=== PATIENT | female | born 1985 | race Caucasian/White ===

== ENCOUNTER 2025-05-18 08:48 | Outpatient (AMB) | payer OTHER, SELFPAY ==
--- NOTE | 2025-05-18 08:59 | A.OFFPC_ITS ---
Vital Signs 05/18/25 09:04 Height 5 ft 6.54 in Weight 134 lb BMI 21.3 BP 104/72 Blood Pressure Location Rt brachial Position Sitting Respiration 12 Pulse 80 Pulse Source Pulse Oximeter Temp 98.8 F Temp Source Oral Pulse Oximetry (%) 99 Oxygen Delivery Method Room Air Intake Visit Reasons: [employer] Intake Note: New patient visit Educational Technician Required: No Allergies No Known Allergies Allergy (Verified 05/18/25 09:00) Medication List - Last Reconciled 05/18/25 by Daphne Montoya PA-C No Known Home Meds Tobacco use date assessed: 05/18/25 Dental Screening Dental Screen Date: 05/18/25 Did you have a dental visit in the last 12 months?: Yes Did you have a dental problem in the last 6 months where you did not have access to dental care?: No Was dental information given to patient?: Patient has dentist HPI [employer] HPI Details Patient is a 40-year-old [facility]. [facility] [place] [facility] [place] She denies any significant past medical history or any acute complaints. In review of systems she does note that for the past year she has had blood in the stool not on the toilet paper or on the outside. She states that it is definitely within the stool. No constipation, diarrhea or any significant change in abdominal pain or bloating. Does endorse intermittent bloating but does not think that this is abnormal. No nausea or vomiting or weight changes. No family history of colorectal cancer. Back [place] [facility] [place] Mammo: ordered,-states she has a schedule [facility] Surgical History (Updated 05/18/25 @ 09:08 by Geraldine Horan CMA) No pertinent past surgical history Family History (Updated 05/18/25 @ 09:09 by Geradline Horan CMA) Father Alcoholism Other Substance abuse Social History Housing: House e-Cigarette/Vaping Use: Never Used Second Hand Smoke Exposure: No service: No Current occupational status: employed Current occupation: [employer] Current occupational exposures/hazards: No Cognitive needs: No Hearing needs: No Vision needs: No Questionnaire PHQ-9 Over the last 2 weeks, how often have you been bothered by any of the following problems? 1. Little interest or pleasure in doing things: not at all 2. Feeling down, depressed, or hopeless: not at all 3. Trouble falling or staying asleep, or sleeping too much: not at all 4. Feeling tired or having little energy: not at all 5. Poor appetite or overeating: not at all 6. Feeling bad about yourself - or that you are a failure or have let yourself or your family down: not at all 7. Trouble concentrating on things, such as reading the newspaper or watching television: not at all 8. Moving or speaking so slowly that other people could have noticed. Or the opposite - being so fidgety or restless that you have been moving around a lot more than usual: not at all 9. Thoughts that you would be better off or of hurting yourself in some way: not at all Total score: 0 Depression Screening Interpretation: Negative Depression Screening Done: Yes 78295 - PHQ-9 Billing: Yes Source: Developed by Drs. Elian Jimenez, Brea Estes, Sb Sanders and colleagues, with an educational donna from [employer]. Thrive Questionnaire Date Thrive assessed: 05/11/25 I am a: Patient What is your living situation today?: I have a steady place to live Within the past 12 months, did the food you bought not last and you didn't have the money to get more?: Never true Within the past 12 months, did you worry whether your food would run out before you got money to buy more?: Never true Do you have trouble paying for medicines?: No Do you have trouble getting transportation to medical appointments?: No Do you have trouble paying your heating and electricity bill?: No Do you have trouble taking care of your child, family member or friend?: No Do you have trouble with day-to-day activities such as bathing, preparing meals, shopping, managing finances, etc.?: No Are you currently unemployed and looking for a job?: No Are you interested in more education?: No Please select the resources that you would like help with: None Currently or been in a relationship where the following occur: No concerns reported THRIVE Score: 0 AUDIT C Alcohol Use Questionnaire (AUDIT-C) 1. How often do you have a drink containing alcohol?: Monthly or less 2. How many drinks containing alcohol do you have on a typical day when you are drinking?: 3 or 4 3. How often do you have six or more drinks on one occasion?: Less than monthly Total Score: 3 GARY-7 AMB Questionnaire GARY-7 Feeling nervous, anxious, or on edge: 0 = Not at all Not being able to stop or control worryin = Not at all Worrying too much about different things: 0 = Not at all Trouble relaxin = Not at all Being so restless that it is hard to sit still: 0 = Not at all Becoming easily annoyed or irritable: 0 = Not at all Feeling afraid as if something awful might happen: 0 = Not at all Total GARY-7 score (0-4 normal; 5-9 mild; 10-14 moderate; 15-21 severe): 0 Source: Developed by Drs. Elian Jimenez, Brea Estes, Sb Sanders and colleagues, with an educational donna from [employer]. GARY-7 Assessment Billing GARY-7 Assessment Tool: GARY-7 Assessment 37206 Physical exam (Primary Care) Vital Signs: Last Vital Signs Temp 98.8 F 05/18/25 09:04 Pulse 80 05/18/25 09:04 Resp 12 05/18/25 09:04 BP 104/72 05/18/25 09:04 Pulse Ox 99 05/18/25 09:04 Oxygen Delivery Method Room Air 05/18/25 09:04 BMI result Body Mass Index 21.3 Tobacco/Smoking Status: Tobacco use Status Tobacco use date assessed 05/18/25 05/18/25 09:09 e-Cigarette/Vaping Use Never Used 05/18/25 09:09 PHQ-9: PHQ-9 Score PHQ-9: Total score 0 05/18/25 09:22 Depression Screening Interpretation: Negative Thrive Assessment: Date of Thrive Assessment Date Thrive assessed 05/11/25 05/18/25 09:09 Currently or been in a relationship where the following occur: No concerns reported Const Orientation/consciousness: patient oriented x3 HENMT Ears: hearing grossly normal bilaterally and TM's normal bilaterally General nose exam: No nasal polyps present Face and sinus: Yes sinuses nontender Mouth: Normal oral and palatal mucosa present Eyes Pupils: Equal, round and reactive pupils present EOM: EOMs intact bilaterally Neck Neck: Yes full ROM and Yes no lymphadenopathy Thyroid: Thyroid normal Chest Chest palpation & inspection: normal inspection of the chest Resp Auscultation: clear to auscultation bilaterally Cardio Rate: regular rate Rhythm: regular rhythm Heart sounds: S1 normal heart sound present and S2 normal heart sound present Peripheral pulses: Peripheral pulses 2+ throughout GI Other: Soft, nontender Auscultation: normal bowel sounds Rectal Exam - Female: deferred General: Yes no CVA tenderness Back/Spine/Pelvis Other: Nontender Back: no CVA tenderness Skin General skin exam: no rashes or lesions noted Neuro General: patient oriented x3, gait normal, CN's II-XI intact bilaterally and deep tendon reflexes 2+ bilaterally Cranial nerves: Yes Equal, round and reactive pupils present Motor exam (neuro): 5/5 motor strength present throughout Sensory Exam: double simultaneous stimulation for sensation normal Coordination: [id number] test normal and Romberg test negative Extrem General: Yes normal to inspection and Yes full ROM Psych Affect: normal affect Attitude: cooperative Thought process: Normal thought process present Thought content: Normal thought content present Insight: Good insight present (Psych) Judgement: Good judgement present (Psych) Coding Level of Care Code New Pt Prev Care 40-64y(38120) Diagnoses Routine general medical examination at a health care facility Z00.00 Blood in stool K92.1 Additional Codes GARY-7 Assessment Billing - GARY-7 Assessment Tool: GARY-7 Assessment 55571 ([id number]) PHQ-9 - 64736 - PHQ-9 Billing: Yes ([id number]) Assessment & Plan Assessment & Plan (1) Routine general medical examination at a health care facility: Code(s): Z00.00 - Encounter for general adult medical examination without abnormal findings Plan: reviewed labs ordered reminded pt to get mammo flu shot offered (2) Blood in stool: Code(s): K92.1 - Melena Category: Medical Plan: Referral to GI stool test ordered labs ordered Orders: Orders Complete Blood Count Auto Diff Today Z00.00 - Encounter for general adult medical examination without abnormal findings Comprehensive [place]. Panel Fast Today Z00.00 - Encounter for general adult medical examination without abnormal findings Lipid Panel Today Z00.00 - Encounter for general adult medical examination without abnormal findings UA CC w/rflx Micro + Cult Today R30.0 - Dysuria, Z00.00 - Encounter for general adult medical examination without abnormal findings Microalbumin, Random (w Creat) Today Z00.00 - Encounter for general adult medical examination without abnormal findings AMB Stool Occult Bld x3 gFOBT Today Z12.11 - Encounter for screening for malignant neoplasm of colon, Z12.12 - Encounter for screening for malignant neoplasm of rectum TSH reflex Free T4 Today Z00.00 - Encounter for general adult medical examination without abnormal findings Referrals Gastroenterology Referral K92.1 - [place]
[2025-05-18 09:04] VITALS: BP 104/72; PULSE 80; RESP 12; TEMP 37.1; O2SAT 99; BMI 21.3
== END 2025-05-18 09:32 | disposition home or self-care (01) ==
LOC: HO.HMCFM 08:49
PROVIDERS: Visit Provider Physician Assistant
DX: Z00.00 Encounter for general adult medical examination without abnormal findings (principal); K92.1 Melena

== ENCOUNTER → 2025-05-18 08:48 | Outpatient (BNVA) | payer OTHER, SELFPAY | PROVIDERS: Visit Provider Physician Assistant | DX: Z00.00 Encounter for general adult medical examination without abnormal findings (principal); K92.1 Melena | CPT/HCPCS: 96127; 99386 ==